=== PATIENT | female | born 1945 | race Caucasian/White ===

== ENCOUNTER 2017-09-17 15:13 | Inpatient (IN) | payer MEDICARE ==
[~2017-09-17 15:13] MED LIST: ISOVUE-370 76%-LOCM 1 ML ONE
--- NOTE | 2017-09-17 15:42 | CT ---
CT OF BRAIN PERFORMED WITHOUT CONTRAST ENHANCEMENT: 09/17/16 HISTORY: Altered mental status. Patient found unresponsive. History of previous CVAs. COMPARISON: None. There is a right sided scalp hematoma present. There is a left frontal craniotomy. There is extensive underlying encephalomalacia change mainly in the left middle cerebral artery distribution and decrea sed attenuation involving basically the entire left periventricular white matter. There is dilatation of the left lateral ventricle related to the encephalomalacia change. No definite acute findings. An arachnoid cyst is noted in the right temporal lobe. IMPRESSION: Postoperative changes and extensive encephalomalacia change of the left cerebral hemisphere. No defin ite acute findings. Findings telephoned to the Emergency Room at 1524 hours. POS: [facility]
[2017-09-17] MEDS ORDERED: Vecuronium 10 MG VIAL ONE ×2 (15:51→15:52)
[2017-09-17] MEDS ORDERED: Water For Inject, Bacteriostat 30 ML ONE (15:53)
[2017-09-17] MEDS ORDERED: Propofol 1,000 MG/100 ML VIAL IV ONE (15:58)
[2017-09-17] MEDS ORDERED: Lisinopril 10 MG TAB ONE (15:58)
[2017-09-17 16:01] LABS: Bilirubin Negative (Negative); Blood, Urine Small (Negative); Glucose, Urine (Dipstick) Negative (Negative); Ketone, Urine Negative (Negative); Nitrite Negative (Negative); Protein, Urine (Dipstick) 30 mg/dL (Neg-Trace); Urobilinogen 0.2 mg/dL (0.2-1.0)
[2017-09-17 16:04] LABS: Bacteria/HPF None Seen HPF (None Seen); Hyaline Casts/LPF 0-3 HYALINE CAST LPF (0-3 Hyaline); RBC/HPF 0-3 HPF (0-3); Squamous Epithelial None Seen HPF (0-3); WBC/HPF None Seen HPF (0-3)
[2017-09-17 16:12] LABS: #Lymphocytes 1.3 thou/uL (1.20-3.40); #Monocytes 0.6 thou/uL (0.11-0.59); #Neutrophils 9.2 thou/uL (1.40-6.50); %Basophils 0.3 % (0.0-1.0); %Eosinophils 0.3 % (0.0-10.0); %Lymphocytes 11.5 % (21.0-51.0); %Monocytes 5.7 % (0.0-10.0); Hematocrit 44.6 % (36.0-47.0); Mean Platelet Volume 8.4 fL (7.4-10.4); White Blood Cell (WBC) Count 11.2 thou/uL (4.8-10.8)
[2017-09-17] MEDS ORDERED: Atropine Sulfate 1 mg/10 ml Syringe ONE (16:12)
[2017-09-17 16:21] LABS: Lactic Acid - Sepsis 2.2 mmol/L (0.5-2.2)
[2017-09-17 16:21] LABS: Oxyhemoglobin 97.3 % (94.0-97.0); Sodium 142 mmol/L (135-148)
[2017-09-17 16:22] LABS: Mechanical Tidal Volume 500 ml; Modified Allen's Test POSITIVE; Vent YES
[2017-09-17 16:23] LABS: Mode SIMV; Pressure Support 10 cmH2O
[2017-09-17 16:29] LABS: Troponin I 0.021 ng/mL (< 0.028)
[2017-09-17 16:32] LABS: ALT (SGPT) 11 U/L (8-55); AST (SGOT) 27 U/L (5-34); Alkaline Phosphatase 120 U/L (40-150); Anion Gap 18 mmol/L (10-20); BUN (Urea Nitrogen) 8 mg/dL (9.8-20.1); Bilirubin, Total 0.5 mg/dL (0.2-1.2); CK (CPK) 446 U/L (29-168); Calc. Creatinine Clearance 0 mL/min (70-130); Calcium 9.2 mg/dL (7.8-10.44); Carbon Dioxide 22 mmol/L (23-31); Chloride 104 mmol/L (98-107); Estimated GFR-MDRD 71; Lipase 9 U/L (8-78); Protein, Total 8.2 g/dL (6.0-8.3)
[2017-09-17 16:41] LABS: Amphetamine Not Detected (NotDetected); Methadone Not Detected (NotDetected); Methamphetamine Not Detected (NotDetected)
[2017-09-17 16:42] LABS: Prothrombin Time 14.4 SEC (12.0-14.7)
--- NOTE | 2017-09-17 17:02 | RAD ---
CHEST ONE VIEW 09/17/17 HISTORY: Altered mental status. COMPARISON: None. FINDINGS: The patient is intubated with endotracheal tube tip 2.5 cm craniad to the michaela. Enteric tube is in place with tip below the diaphragm although out of field of view. Heart size is prominent. No pneumothorax or effusion. IMPRESSION: 1. Endotracheal tube tip 2.5 cm craniad to the michaela. 2. Enteric tube tip below diaphragm although out of field of view. 3. Mild cardiomegaly. POS: [facility]
--- NOTE | 2017-09-17 17:10 | RAD ---
ABDOMEN ONE VIEW 09/17/17 HISTORY: Tube placement. COMPARISON: None. FINDINGS: Enteric tube is in place with tip at the gastric body and the side port appears to be at the GE junct ion. IMPRESSION: Enteric tube tip at the gastric body. Side port appears to be at the GE junction. Recommend advancing 2 to 3 cm. POS: [facility]
[2017-09-17] MEDS ORDERED: Piperacillin/Tazobactam 3.375 GM in Sodium Chloride 0.9% 100 ML IVPB SCH (17:30)
[2017-09-17 17:35] LABS: Acetaminophen Less than 6.0 mcg/mL (10.0-30.0); Salicylate Less than 8.0 mg/dL (15.0-30.0)
--- NOTE | 2017-09-17 18:33 | CT ---
CT ANGIO OF HEAD WITH AND WITHOUT CONTRAST WITH PERFUSION 09/17/17 HISTORY: Altered mental status. COMPARISON: CT brain same day. TECHNIQUE: CT angiogram of the head performed after the intravenous administration of contrast. 3D rendering is provided. Perfusion was performed. FINDINGS: On the CTA images, there is a clot completely occluding the distal right M1 branch with extension to the superior and inferior M2 branches for a short segmental length with distal reconstitution. This a bnormal increased mean transit time throughout the right MCA territory with mildly decreased cerebral blood flow although the cerebral blood volume is maintained indicating a large volume of potentially viable brain. Dense atherosclerotic plaque throughout the transverse aorta. Evidence of prior surgery on the right neck. Left MCA encephalomalacia is present. The orbits are unremarkable. Patient is intubated and enteric tube has also been placed. There is some atelectatic changes in the lung apices. Small volume gas in the right internal jugular vein. Anterior cerebral arteries are patent. High grade stenosis left P1. Right [employer] is patent. Left m iddle cerebral artery is patent. IMPRESSION: Acute thrombus of the distal right M1 branch with a large penumbra of viable salvageable brain. Code CR - Nurse notified of findings via telephone at 6:[address] Disla was notified via the nurse. POS: [facility]
[2017-09-17] MEDS ORDERED: hydrALAZINE 20 MG/ML VIAL SLOW IVP PRN (18:43)
[2017-09-17] MEDS ORDERED: Ondansetron ODT 4 MG TAB PO PRN (18:43)
[2017-09-17] MEDS ORDERED: Ondansetron HCl/PF 4 MG/2 ML Vial IVP PRN (18:43)
[2017-09-17] MEDS ORDERED: Labetalol HCl 100 MG/20 ML VIAL SLOW IVP PRN (18:43)
[2017-09-17] MEDS ORDERED: Acetaminophen 650 MG Suppository PR PRN (18:43)
--- NOTE | 2017-09-17 18:56 | ER ---
DATE OF SERVICE: 09/17/2017 Please refer the patient's electronic medical record for further details of her visit. In summary, the patient presents with altered mental status. There was no concern for CVA and a stro ke activation was initiated. She was transferred directly from the ambulance to CT scan, which showe d no acute intracranial hemorrhage or other acute findings. Because of her time of onset of symptoms which was at least prior to 8 a.m., the patient was outside the window for thrombolytics or Sharyn tr eatment. On initial survey, the patient is breathing spontaneously, but not protecting her airway. Breath sounds are sonorous. I discussed with the patient's family regarding her wishes, they indica te that "whatever needs to be done." They are in agreement with my plan for intubation. Patient was intubated without any episodes of hypoxia or any other complication. She was hypertensive on arriva l, this improved with propofol administration to maintain sedation after intubation. She became mild ly bradycardic in the mid 40s shortly after intubation, but this spontaneously resolved to her baseli ne in the mid 50s. At this point, there is no clear etiology of her altered mentation. Her evaluati on in the ER reveals normal renal function and electrolytes, no acute cardiac ischemia, a mildly elev ated Dilantin level (which she takes for history of seizures, though she has not had one for the last 12 years). There is no clear underlying infectious focus with a normal chest x-ray and urinalysis. Cultures are pending at this point. The patient will be covered with antibiotics as a precaution. Her lactate i s noted to be at the high side of normal. Her family was updated with findings and plan, they are aw are of the life threatening nature of her condition. She is in stable condition at the time of admis kalin to the ICU, though with a very guarded prognosis given her underlying comorbid conditions and th e severity of her altered mentation.
[2017-09-17] MEDS ORDERED: Enoxaparin Sodium 40 MG/0.4 ML SYRINGE SC SCH (19:00)
[2017-09-17 19:08] LABS: Hemoglobin A1c 5.1 % (4.0-6.0)
[2017-09-17 19:19] LABS: Troponin I 0.044 ng/mL (< 0.028)
[2017-09-17] MEDS: D5 1/2 NS w/20 mEq KCL 1,000 ML IV SCH (19:49)
[2017-09-17] MEDS: Famotidine/PF 20 mg/2ml Vial SLOW IVP SCH (19:58)
--- NOTE | 2017-09-17 20:27 | HP ---
This is an attending history and physical for patient, Gypsy Bourgeois. For full history and physic al, please see Dr. Upton's dictated H&P. Portion to the history and physical have been reproduced b y myself and I am in agreement with his stated plan. HISTORY OF PRESENT ILLNESS: The patient is a 72-year-old female with a history of left-sided CVA wit h resultant of right-sided deficits in approximately 2002 as well a seizure disorder from the severe CVA, who presents to the ER tonight after being found with altered mental status by family members. The patient was apparently in her normal state of health last night at bedtime. However, this mornin g, the granddaughter found the patient to be somnolent at approximately 8:00 a.m. that progressed to minimally responsive at approximately 9:00 a.m. At that time, EMS was called and patient was transpo rted to the hospital. Upon arrival to the hospital, the patient had severe obtundation and had been found to be unable to protect her airway due to altered mentation. The decision was made at that loy e to intubate her and admit her to the ICU. Upon questioning family, they report that the patient wa s in normal state of health last night. They report that her baseline neurological function includes being able to ambulate with minimal difficulty and carry on conversations. However, as mentioned ab way this morning, she was less verbally responsive that seemed to progress throughout the morning. F amily members denied that the patient complained of any other symptoms including headache, sensory ch main, motor weakness. They also denied any other symptoms of illness and reported she had been quite well recently. Upon arrival to the ER, she was intubated. Routine labs were obtained. She was adm itted to the Critical Care Unit for further workup and intervention. PHYSICAL EXAMINATION: At the time of my exam include; VITAL SIGNS: Temperature afebrile, pulse 55, blood pressure 193/61, respirations were 16 a minute an d saturations are 98% on SIMV with FiO2 of 50%. GENERAL APPEARANCE: On exam, patient was sedated and ventilated. Therefore, she was nonresponsive d uring my examination. HEENT: Pupils were equally round and sluggishly but reactive to light. There was no evidence of asy mmetric pupils. CARDIOVASCULAR: The patient's heart was bradycardic, but regular rhythm. There were no murmurs ausc ultated. RESPIRATORY: Lungs were clear bilaterally to auscultation. ABDOMEN: Soft and nondistended. There was no guarding on exam. EXTREMITIES: Revealed palpable and symmetric pulses in the upper and lower extremities bilaterally. The patient was noted to have 3+ pitting edema in the right lower extremity as it is chronic per fam patsy. Patient had 2 beats of myoclonus in the left lower extremity. Unable to obtain in the right lo wer extremity due to severe edema in the right foot. NEUROLOGIC: Not possible at this time as the patient was sedated with propofol. However, it was not ed by the nurses that she did have some spontaneous movements. Upon arriving to the Critical Care Un it, which included some left arm movement as well as some yawning type movement with her mouth. LABORATORY DATA: Pertinent laboratory studies include: 1. Overall, normal CBC, mildly elevated white count of 11.2 with 82% neutrophils. 2. CMP was overtly normal. ABG was 7.47, pCO2 of 31.5 and pO2 of 201 and base excess 0. 3. CK was 446, CK-MB 6.9 and troponin 0.021. 4. Lactate was 2.2. 5. Prolactin 9. 6. Urinalysis was overall clear 7. Urine drug screen was positive for barbiturates and had a Dilantin level 24.5, which is consisten t with the patient's home medication. Serum osmolarity was normal. IMAGING AND X-RAY FINDINGS: 1. Imaging studies showed an initial brain CT, which showed a right-sided scalp hematoma. There wer e no acute changes seen. The patient was noted to have extensive left-sided encephalomalacia from he r previous infarct. 2. Chest x-ray showed ET tube in appropriate place with NG tube. There were no acute cardiopulmonar y processes in chest x-ray. 3. CT angiogram of the head and neck showed an acute thrombosis of the distal right M1 branch with l arge number of viable, salvageable brain essentially showing an acute infarct in the right side of th e patient's brain. ASSESSMENT AND PLAN: This is a 72-year-old female with a; 1. History of cerebrovascular accident who was admitted to the ICU with encephalopathy, now secondar patsy to an acute right-sided middle cerebral artery cerebrovascular accident. As patient had severe o btundation likely secondary to this acute infarct, she has been intubated and ventilated and will be admitted to the ICU. Pulmonology has been consulted and we will await further recommendations from t hem as well as vent management. ABG at the time of intubation appears appropriate and there is not b e any hypoxia or hypercapnia. I do not have suspicious if there is severe lung process going on and contributing this patient's hospitalization. She has now been found to have an acute infarct. Inter ventional Stroke team has been consulted and we are awaiting further recommendations from them. Neur ology as well as Stroke team will be consulted on this patient tonight. We will continue with typica l post-stroke protocol including aspirin, statin, risk stratification, therapy consultations and Stro ke team as mentioned above. The patient with significant hypertension at sometimes into the 200 syst olic. Due to this acute infarct with salvageable brain tissue, we will continue the patient on permi ssive hypertension for the next 24 hours and allow pressures 220/110. If increased above the level, we will provide p.r.n. medications to bring it down mildly. As far as other causes related to the en cephalopathy, they resulted in hospitalization. There has been no evidence of trauma, toxins, electr olyte or endocrine abnormalities, seizure or infection that would have resulted in some of the patien t's symptoms. She has been given one dose of antibiotics in the emergency room and blood and urine c ultures have been obtained. We will await those results. However, I do not feel that this is a sign ificant cause of her current symptoms. Due to her large infarct as well as the history of infarct on the left side of her brain, we will need to monitor her for seizure activity. She will be continued on her home Keppra, but she may will need additional medication if she starts having any sort of sei zure activity. We will await further recommendations from Neurology. 2. Accelerated hypertension. This is now likely due to the patient's acute infarct. As above, we w ill allow permissive hypertension for 24 hours. PRNs will be available for pressures elevated higher than at goal. 3. Elevated CK. We will trend these enzymes. This is likely due to demand ischemia due to sympathe tic response to the patient's acute cerebrovascular accident. We will keep an eye on this; it is unl ikely that the patient is actually having an acute infarct. If it does appear that, she may need wor kup for embolic cause. Consider echo if that occurs.
[2017-09-17] MEDS ORDERED: Sedation Protocol FS SCH (20:50)
[2017-09-17] MEDS ORDERED: Propofol 1,000 MG/100 ML VIAL IV PRN (20:55)
[2017-09-17] MEDS ORDERED: Lorazepam 2 MG/ML VIAL SLOW IVP PRN (20:55)
[2017-09-17] MEDS ORDERED: DISCONTINUE PREVIOUS NARCOTIC PAIN MEDICATIONS AND BENZODIAZEPINES FS SCH (20:55)
[2017-09-17] MEDS ORDERED: Fentanyl 20 MCG/ML 250 ML IVPB SCH (20:55)
[2017-09-17] MEDS: Fosphenytoin Sodium 100 MG in Sodium Chloride 0.9% 50 ML IVPB SCH (20:58)
[2017-09-17] MEDS ORDERED: Atropine Sulfate 1 mg/1 ml Vial IVP SCH (21:00)
[2017-09-17] MEDS: Atorvastatin Calcium 40 MG TAB PO SCH (21:02)
[2017-09-17 22:22] LABS: Troponin I 0.054 ng/mL (< 0.028)
--- NOTE | 2017-09-17 23:34 | PRG ---
DATE OF SERVICE: 09/17/2017 This note was based upon a phone call interaction by [facility]. SUBJECTIVE: Ms. Bourgeois is a 72-year-old female with a history significant for aneurysm repair, seizure disorder and large left hemispheric stroke. Per report from the resident as well as review of the ER records, the patient was at her baseline state of health last evening. Per report this morning when the patient awoke, the patient was less interactive and less responsive and became less arousable and unresponsive towards the latter part of the morning and early afternoon. She presented to the ER and due to her altered mental status, she was rapid sequence intubated. She was placed in the ICU. She initially underwent a CT scan of the head, which showed no acute events but evidence for prior operative procedures as well as encephalomalacia and prior chronic infarcts predominantly on the left. She also has a right-sided arachnoid cyst in the anterior right temporal lobe. She subsequently underwent CT angiography, which showed the presence of what is likely thrombus within the right M1 branch which extends into the superior aspect of the M2 branch. Distally, the vessels reconstitute which likely accounts for her penumbra due to collateral flow. Given the time course (~20 hours) that the patient was last seen normal, her poor condition, the lack of new lateralizing findings, and unexplained altered mental status/encephalopathy, I do not believe she is a good candidate for any additional interventional stroke treatment. Despite thrombus, she perfuses the right hemisphere and therefore we should avoid over-aggressive BP control. JUAN ALBERTO
[2017-09-18] MEDS: D5 1/2 NS w/20 mEq KCL 1,000 ML IV SCH (04:53)
[2017-09-18] MEDS: Fosphenytoin Sodium 100 MG in Sodium Chloride 0.9% 50 ML IVPB SCH ×3 (05:01→21:08)
[2017-09-18 05:06] LABS: Anion Gap 14 mmol/L (10-20); BUN (Urea Nitrogen) 8 mg/dL (9.8-20.1); Calc. Creatinine Clearance 102 mL/min (70-130); Calcium 8.2 mg/dL (7.8-10.44); Carbon Dioxide 19 mmol/L (23-31); Chloride 104 mmol/L (98-107); Cholesterol 202 mg/dl (< 200 Desired); Estimated GFR-MDRD 78; LDL Cholesterol, Calculated 123 mg/dL
[2017-09-18 06:18] LABS: Oxyhemoglobin 95.2 % (94.0-97.0); Sodium 138 mmol/L (135-148)
[2017-09-18 06:19] LABS: Mechanical Tidal Volume 500 ml; Mode SIMV/PS; Pressure Support 10 cmH2O; Vent YES
--- NOTE | 2017-09-18 06:25 | CON ---
DATE OF CONSULTATION: 09/17/2017 REFERRING PROVIDER: Frank Upton M.D. REASON FOR CONSULTATION: Stroke. HISTORY OF PRESENT ILLNESS: Ms. Bourgeois is a 72-year-old female who has been consulted f or evaluation of stroke. History is obtained from patient's who was present at bedside. Celestina rocha reports that the patient has a history of aneurysm rupture, along with a stroke in 2002. She hernandez d undergone craniotomy at that time and since then has had expressive aphasia along with right-sided weakness. 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 From that stroke, she had developed seizu res secondary to that. At that time, she has been on seizure medication and has been well controlled on her seizures. She has been in her normal baseline since that time to yesterday night. He states that his granddaughter was with her. Yesterday around 10:30 p.m., he had talked to her over the beryl ne and she was doing okay at that time. This morning, her granddaughter tried to wake her up and she was not waking up. Due to this reason, they had decided to bring her to the emergency room for furt her evaluation. On arrival here, she had to be intubated to protect her airways. I am being asked t o further evaluate this patient for stroke. PAST MEDICAL HISTORY: Significant for hypertension, stroke, aneurysm rupture, history of seizure, hy perlipidemia. PAST SURGICAL HISTORY: Significant for craniotomy. SOCIAL HISTORY: She does not smoke cigarettes, drink alcohol or use illicit drugs. She is a nd lives with her . CURRENT MEDICATIONS: Please review MAR. ALLERGIES: No known drug allergies. REVIEW OF SYSTEMS: Unable to obtain. PHYSICAL EXAMINATION: VITAL SIGNS: Blood pressure of 163/69, pulse of 52, respirations of 18, O2 sats of 100% on mechanica l ventilation, temperature of 98.3. GENERAL: Intubated, sedated female, in no apparent distress. RESPIRATORY: Clear to auscultation bilaterally. CARDIOVASCULAR: Regular rate and rhythm. NEUROLOGIC: Mental status: The patient is intubated and sedated with propofol. She is nonresponsiv e to verbal or noxious stimuli. Cranial nerves: Pupils are 3 mm and reactive. She responds to supr aorbital pressure bilaterally. Corneal reflexes are present bilaterally. She does breathe over the ventilator machine. Motor exam showed spastic right upper and right lower extremity that has been th ere from her stroke in 2002. She has a flaccid left upper and left lower extremity. She does withdr aw to pain on the left upper and left lower extremity as well as in right upper and right lower extre mity. LABORATORY DATA: Reviewed, which included CBC, coag panel, CMP, CK-MB, troponin, TSH, lactic acid, u rinalysis, urine drug screen, Dilantin level, which is significant for WBC of 11.2. CPK of 446, CK-M B of 7.8, troponin of 0.044, Dilantin level of 24.5, otherwise unremarkable. IMAGING STUDIES: CT head without contrast was reviewed which showed encephalomalacia involving the l eft MCA distribution suggestive of remote infarct. The CT angiogram of the head and neck was reviewe d, which showed right MCA M1 distribution distal embolus. CT perfusion scan showed large area of pen umbra on the right MCA territory. IMPRESSION: 1. Right middle cerebral artery stroke. 2. Decreased level of arousal, due to #1. 3. Seizure disorder. ASSESSMENT AND PLAN: Ms. Bourgeois is a 72-year-old female with a history of left MCA stro ke and hemorrhage secondary to aneurysm rupture, presented with the acute onset of decreased level of arousal. Her last time well known was more than 4-1/2 hours. She also has a history of craniotomy done and large left MCA stroke, thus she is not a candidate for IV TPA. The patient's case was discu ssed with Dr. Pastrana by global president physician who had informed me that Dr. Pastrana felt the patient is not a candidate for intra-endovascular therapy per Dr. Pastrana. At this time, I will recom mend continuing supportive care. We will obtain MRI brain without contrast in the morning. I have d iscussed with the patient's and explained that the prognosis is guarded at this point. I deim l have to evaluate her MRI findings and repeat the exam on tomorrow to see how she is doing. I will further discuss the prognosis on tomorrow with the family. Thank you for your consultation.
[2017-09-18 06:30] LABS: Troponin I 0.028 ng/mL (< 0.028)
[2017-09-18 06:30] LABS: Band 1 % (5-11); Hematocrit 43.5 % (36.0-47.0); Mean Platelet Volume 9.5 fL (7.4-10.4); Neutrophil 74 % (42-75); Reactive Lymphocytes 1 % (0-10); Red Blood Cell (RBC) Count 4.63 mill/uL (4.20-5.40); White Blood Cell (WBC) Count 7.5 thou/uL (4.8-10.8)
[2017-09-18 06:31] LABS: Critical Call CKMBM RESULT DECREASING
--- NOTE | 2017-09-18 06:54 | CON ---
DATE OF CONSULTATION: 09/17/2017 HISTORY OF PRESENT ILLNESS: Gypsy Bourgeois is a 72-year-old female who in 2002 had a craniotomy fo r a left-sided hemorrhage. Ever since then, she has right-sided paralysis, though she has survived t he insult. She now sees Dr. Levine in [place]. According to her granddaughter, who lives with her, she was found to be less responsive today, unclear what transpired. She fell about a month ago, but she has been e ating and drinking. In the ER, she had a CT of her brain, which shows the previously described postoperative changes in t he left hemisphere, but nothing new was seen. X-ray was unremarkable. She was intubated for mental status change. PAST MEDICAL HISTORY: Craniotomy for intracerebral hemorrhage. MEDICATIONS: Only medicines she takes are Dilantin and aspirin. ALLERGIES: None. SOCIAL AND FAMILY HISTORY: Otherwise unremarkable. Former smoker. REVIEW OF SYSTEMS: Otherwise negative. PHYSICAL EXAMINATION: GENERAL: She is unresponsive, on Diprivan. VITAL SIGNS: Pulse 61, blood pressure 119/80, sats are 97%, respirations 18. CHEST: Revealed decreased breath sounds, no wheezing. CARDIAC: Normal S1 and S2. No gallops. ABDOMEN: No masses. LABORATORY DATA: Shows white count 11,000, H&H are 14 and 44, platelet count is normal. PO2 of 201, pCO2 of 31, pH 7.47, 50%, 16 rate. Electrolytes are normal. Sodium 139, CK of 6.9, creatinine 0.8. Dilantin level is 24.5. IMPRESSION: 1. History of previous craniotomy for hemorrhage. 2. Right-sided paralysis. 3. Seizure disorders. 4. Acute mental status change. PLAN: Minimize sedation. Continue home seizure medication, serial exam. Lab is being ordered. Input from Neurology. We will follow. Wean when stable. Forty minutes of critical care time.
--- NOTE | 2017-09-18 07:35 | PDOC.FM ---
- Subjective Subjective: Overnight, patient with kristen and given a dose of atropine. HR has been persistently in 40s-50s. Patient remains sedated and able to withdraw from pain. - Objective Vital Signs & Weight: Vital Signs (12 hours) Temp Pulse Resp BP Pulse Ox 09/18/17 06:50 45 L 132/46 L 09/18/17 06:00 22 H 09/18/17 04:00 98.7 F 16 09/18/17 03:00 49 L 146/45 H 09/18/17 02:00 18 09/18/17 00:00 98.6 F 20 09/17/17 22:09 100 09/17/17 22:07 47 L 09/17/17 22:00 23 H 09/17/17 20:00 98.3 F 47 L 15 100 Most Recent Monitor Data Heart Rate from ECG 59 NIBP 132/46 NIBP BP-Mean 74 Respiration from ECG 16 SpO2 96 I&O: 09/17/17 09/18/17 09/19/17 06:59 06:59 06:59 Intake Total 1260.9 Output Total 730 Balance 530.9 Result Diagrams: 09/18/17 03:26 09/18/17 03:26 <Sariah Remy - Last Filed: 09/18/17 10:37> - Objective Vital Signs & Weight: Vital Signs (12 hours) Temp Pulse Pulse Pulse Resp BP BP 09/18/17 10:34 59 L 160/50 H 09/18/17 10:26 52 L 56 L 157/41 H 09/18/17 10:00 10 L 09/18/17 08:50 47 L 09/18/17 08:05 99.3 F 09/18/17 08:00 99.3 F 47 L 16 09/18/17 06:50 45 L 132/46 L 09/18/17 06:00 22 H 09/18/17 04:00 98.7 F 16 09/18/17 03:00 49 L 146/45 H 09/18/17 02:00 18 09/18/17 00:00 98.6 F 20 BP Pulse Ox 09/18/17 10:34 09/18/17 10:26 160/50 H 09/18/17 10:00 09/18/17 08:50 09/18/17 08:05 09/18/17 08:00 98 09/18/17 06:50 09/18/17 06:00 09/18/17 04:00 09/18/17 03:00 09/18/17 02:00 09/18/17 00:00 Most Recent Monitor Data Heart Rate from ECG 54 NIBP 157/41 NIBP BP-Mean 77 Respiration from ECG 16 SpO2 100 I&O: 09/17/17 09/18/17 09/19/17 06:59 06:59 06:59 Intake Total 1260.9 513 Output Total 730 60 Balance 530.9 453 Result Diagrams: 09/18/17 03:26 09/18/17 03:26 <Afshin Mejia - Last Filed: 09/18/17 10:59> Phys Exam - Physical Examination Constitutional: NAD ETT in place HEENT: PERRLA (RT pupil sluggish but reactive) Respiratory: no wheezing, clear to auscultation bilateral Cardiovascular: no significant murmur bradycardic Gastrointestinal: soft, non-tender, positive bowel sounds Musculoskeletal: edema present (RLE 3+, LLE 2+) not able to do perform due to sedation <Sariah Remy - Last Filed: 09/18/17 10:37> Dx/Plan (1) Acute right MCA stroke Code(s): I63.511 - CEREB INFRC D/T UNSP OCCLS OR STENOS OF RIGHT MID CEREB ART Status: Acute Plan: Patient with hx of LT sided infarct with residual RT sided deficits as well as hx of craniotomy for hemorrhage. Presented in AMS and found to have RT MCA on CTA. Neurosurgery consulted and do not recommend any intervention. Dr. Son of Neurology consulted and will obtain MRI. Pending MRI results will discuss further prognosis. Currently patient is intubated and full code. Permissive HTN allowed for 24hours, however patient acutely dropped her BPs from 200s to 120s. Echo pending. Cont ASA and statin. (2) Acute respiratory failure Code(s): J96.00 - ACUTE RESPIRATORY FAILURE, UNSP W HYPOXIA OR HYPERCAPNIA Status: Acute Plan: 2/2 to acute RT CVA. Dr. Frost of Pulmonology consulted. Appreciate recs. (3) Bradycardia Code(s): R00.1 - BRADYCARDIA, UNSPECIFIED Status: Acute Plan: Patient with persistent HR in 40-50s. Given atropine x2 overnight. Unknown if patient chronically bradycardic. Provide theophylline prn HR <45. Monitor. (4) History of CVA with residual deficit Code(s): I69.30 - UNSPECIFIED SEQUELAE OF CEREBRAL INFARCTION Status: Chronic Plan: Hx of LT infarct causing RT sided deficits in 2002 as well as hx of craniotomy from hemorrhage. (5) Seizure disorder as sequela of cerebrovascular accident Code(s): I69.398 - OTHER SEQUELAE OF CEREBRAL INFARCTION; G40.909 - EPILEPSY, UNSP, NOT INTRACTABLE, WITHOUT STATUS EPILEPTICUS Status: Chronic Plan: Cont home phenytoin. No seizure activity during hospitalization but will monitor as patient now with new RT MCA. (6) Hx of craniotomy Code(s): Z98.890 - OTHER SPECIFIED POSTPROCEDURAL STATES Status: Acute <Sariah Remy - Last Filed: 09/18/17 10:37> Attending Addendum - Attending Addendum I personally evaluated the patient and discussed the management with Dr. Remy. I agree with the History, Examination, Assessment and Plan documented above with any addition or exceptions noted below. Patient admitted for R sided MCA infarct after being notably obtunded yesterday at home. She has been stable overnight, though she is in critical condition. Continues on ventilator and is not requiring sedation. She has been allowed permissive HTN, but her blood pressures have come back to normal, which may worsen her infarct as there was noted to be salvagable tissue on CTA. Awaiting MRI today to see how significant the infarct is, and awaiting further neurology recs. This is likely a catastrophic infarct as she has a large amount of encephalomalacia on the L side from previous infarct. She has been persistently bradycardic since admission, and has received Atropine x 2. I am unsure of the etiology of this, though it is possible that patient has underlying and chronic bradyarrhythmia. Await further recs from Pulm and Neurology. Her urine output has also trended down, though kidney values normal. Will bolus with fluids as this may be due to insufficient fluid intake. <Afshin Mejia - Last Filed: 09/18/17 10:59>
--- NOTE | 2017-09-18 07:41 | HP-2 ---
DATE OF ADMISSION: 09/17/2017 LOCATION OF ADMISSION: [facility]. ATTENDING: Afshin Mejia MD RESIDENT: Frank Upton, PGY1 CODE STATUS: FULL CODE. HISTORIAN: The patient's granddaughter and the patient's . CHIEF COMPLAINT: Decreased alertness, altered mental status. HISTORY OF PRESENT ILLNESS: It has been noted that HPI was obtained from granddaughter and a s the patient was intubated and sedated at this time. This is a 72-year-old female who com es in with altered mental status starting when she woke up at 8:00 this morning. Last night, she luz maria t to bed around 10:30 with her . Her said she had no complaints and was talking and a lert, denies any complaints. There were no problems. Says that her baseline status was she was able to walk. She does have some right lower leg lymphedema which causes her that she has to use a walke r, but on the night, she talked normally, has no real problems at home, so left to go to [facility], grandson and granddaughter was at the house, went to go wake up the patient for breakfast. When she said she woke her up that she kind of mumbled, her speech was not quite with it, and that she fe ll back asleep. Granddaughter did not think of anything of it just that the patient was tired, let h er sleep, went back and in an hour kind of tried to wake her up again, the patient was kind of mumble d, not really with it, her speech was mumbled. At this time, she went to go get a neighbor to come h elp her. At this time, her grandma's legs were kind of hanging off the side of the bed, was not quit e sure what happened at this time, the neighbor thought and the granddaughter thought maybe they shou ld call the ambulance and around 10:00, they finally called the ambulance. When she came to the ER, she was not maintaining her airway very well, not oxygenating well. She was bradycardic, really hype rtensive, so at this time, they sedated and intubated her. We also gave her some atropine in the ER. PAST MEDICAL HISTORY: She had an aneurysm/stroke back in 2002 when she got a craniotomy for. She hernandez d a history of seizures likely from the stroke up until 2004, has not had a seizure since. PAST SURGICAL HISTORY: She had a craniotomy back in 2002. She had Mohs surgery to remove a mole on her head 4 years ago. She had CEA on the right side of her neck. ALLERGIES: No known drug allergies. MEDICATIONS: We will need to med rec her, but says she takes a seizure pill, takes a baby as pirin, and takes a fluid pill for the lymphedema on her right leg. FAMILY HISTORY: Insignificant. SOCIAL HISTORY: She quit smoking in 2002 but smoked for 30 years, a pack per day. Alcohol use, none . Drugs, none. REVIEW OF SYSTEMS: Unable to obtain review of systems as the patient is sedated and intubated. PHYSICAL EXAMINATION: VITAL SIGNS: Blood pressure is 231/66, pulse 81, respirations 20, temperature was 97.9, pulse ox 98% on ventilator. Current weight was 81 kilograms. GENERAL: The patient is not alert, not oriented. She does seem well-developed, is obese, not approp riately interactive. EYES: Pupils are pinpoint; they did not seem at this time, not reactive to light. Conjunctiva e are within normal limits. Nasal mucosa and oropharynx are within normal limits. NECK: Supple. No lymphadenopathy, no thyromegaly, no bruits. There is a CEA scar on the right side of her neck. CARDIOVASCULAR: Regular rhythm. Rate is bradycardic, is slow. No murmurs, no gallops. Radial puls es and pedal pulses were not able to palpate, were very weak. RESPIRATORY: Did not hear any lung abnormality, was on the ventilator at this time. SKIN: Very cool to touch. No rashes noted. Skin was kind of pale as well. ABDOMEN: It was hard. It was nontender to palpation, she did not react to pain. Bowel sounds were heard in all 4 quadrants. It was a little bit distended. EXTREMITIES: She does have +2 pitting edema on her right lower leg, has lymphedema. MUSCULOSKELETAL: She was moving her left leg. She did react when I touched her left lower extremity . She did kind of withdraw from me touching it. She did not withdraw from me pinching her upper ext remities and she did not withdraw on her right side. Her right arm and right leg were kind of in the extended position, extended posture. Also, her left leg at times when she was not moving was in the extended posture, not her left arm at that time, unable to determine focal deficits due to the sedat ion, unable to do [place] Coma Scale. LABORATORY DATA: White blood cell count 11.2, hemoglobin was 14.2, hematocrit was 44.6, MCV was 94.9 , platelets were 233. Sodium was 139, potassium was 5.0, chloride was 104, CO2 was 22, BUN was 8, cr eatinine was 0.8, glucose was 117, calcium was 9.2, total protein was 8.2, albumin was 4.2, alkaline phosphatase was 120, AST was 27, ALT was 11, total bilirubin was 0.5. PT was 14.4, INR was 1.1, aPTT was 31.0, pH was 7.47, pCO2 was 31.5, pO2 was 201. CK was 446, CK-MB was 6.9, troponins were 0.021. Lipase was 9. Prolactin was 9.92. Lactic acid was 2.2. UA was negative at this time, no abnormal ities seen. IMAGING: A chest x-ray showed an endotracheal tube in place, showed enteric tube tip below the diaph ragm and showed mild cardiomegaly. CT head showed postop changes and extensive encephalomalacia, jose luis nge of the left cerebral hemisphere. No acute findings. Abdominal x-rays showed enteric tube tip at the gastric body, side port at the GE junction and recommend advancing 2-3 cm. ASSESSMENT AND PLAN: 1. Altered mental status likely secondary to stroke. She is sedated and intubated at this time. Emiliano martínez does have a history of aneurysm, stroke in 2002 with right-sided deficits. CT head was negative fo r any acute changes. We will get a CTA of the head and neck. We will get an MRI tomorrow. We will start her on an aspirin and statin. Get a fasting lipid panel, check a TSH, check hemoglobin A1c. Sandra martínez will consult Neurology. We will consult Pulmonology, Critical Care. She will be going to the ICU. Blood cultures and urine cultures are drawn for altered mental status, is not looking like an infec tion at this time, was started on Levaquin and Zosyn. We will continue these antibiotics for now. W e continue to trend CBC, continue to trend BMP. 2. History of seizures. We will continue her home seizure medications, after med record urine drug screen did show possible phenytoin, so we will continue phenytoin at this time for seizure prophylaxi s. 3. Lymphedema of the right leg. Continue home meds water pills. 4. Hypertension. Blood pressure is elevated, but we will allow for permissive hypertension. At thi s time, we will put on labetalol and hydralazine as needed for pressures to get above 220. 5. Elevated CK-MB. CK-MB was elevated at this time and troponin was indeterminate 0.021. We will t rend cardiac enzymes at this time. 5. Deep venous thrombosis prophylaxis, we will use Lovenox and gastroesophageal reflux disease proph ylaxis, we will use famotidine.
[2017-09-18] MEDS: Aspirin 300 MG Suppository PR SCH (08:01)
[2017-09-18] MEDS: Famotidine/PF 20 mg/2ml Vial SLOW IVP SCH ×2 (08:01→21:08)
[2017-09-18] MEDS ORDERED: SODIUM CHLORIDE 0.9% IVPB PRN (08:15)
[2017-09-18] MEDS ORDERED: AMINOPHYLLINE IVPB PRN (08:15)
[2017-09-18] MEDS ORDERED: Aspirin 325 mg Enteric Coated Tablet PO SCH (09:00)
[2017-09-18] MEDS: Sodium Chloride 0.9% 1,000 ML IV SCH ×2 (09:02→21:12)
--- NOTE | 2017-09-18 09:21 | RAD ---
AP CHEST: Date: 09/18/17 HISTORY: Respiratory distress. COMPARISON: 09/17/17 study. FINDINGS: Endotracheal and NG tubes remain in satisfactory position. Heart size appears borderline to slightly enlarged. The lungs appear clear of any infiltrative process. IMPRESSION: Stable chest. POS: [facility]
--- NOTE | 2017-09-18 13:03 | PRG ---
DATE OF SERVICE: 09/18/2017 SUBJECTIVE: Ms. Gypsy Bourgeois is an unfortunate 72-year-old female who was intubated on the vent. She sustained a new right MCA stroke. She has previously undergone a craniotomy for left-sided hemorrhage. This morning, she is in low dose sedation. OBJECTIVE: VITAL SIGNS: She was bradycardic at 46 pulse, sat 100%, blood pressure 140/45, respirations 18. NEUROLOGIC: Pupils are equal. CHEST: Reveals decreased breath sounds without any wheezing, but there is rhonchi. CARDIAC: Normal S1, S2, no gallops. ABDOMEN: Soft. LABORATORY DATA: White count 7.5, hemoglobin and hematocrit are 13 and 35, platelet count 155. PO2 is 83, pCO2 32, pH 7.45. Sodium 133. IMPRESSION: 1. Status post cerebrovascular accident. 2. Former smoker. 3. Chronic obstructive pulmonary disease. 4. Previous craniotomy. PLAN: Await input from Neurology. MRI. Continue vent support. We will discuss with family as they arrive. Start nutrition in the next 24-48 hours. PT. We will follow. One-half hour critical care time.
--- NOTE | 2017-09-18 13:06 | MRI ---
MRI BRAIN PERFORMED WITHOUT CONTRAST ENHANCEMENT: Date: 09/18/17 HISTORY: Stroke symptoms, left-sided weakness. COMPARISON: CT brain and CT angio head done yesterday. FINDINGS: There is moderate atrophy present. Once again, an old infarct in the left middle cerebral artery dist ribution is seen with associated encephalomalacia change and compensatory dilatation of the left late ral ventricle. There is a large area of restricted diffusion within the right middle cerebral artery territory. This involves the temporal lobe and posterior temporal parietooccipital region with the area of infarct e xtending into the right periventricular white matter. In addition, there is some blooming-type change on the gradient echo sequence in a right parasylvian location. Patient does have some encephalomalacia in this area and this could be related to chronic h emosiderin deposition, but could potentially represent a small area of hemorrhage. It measures approx imately 1.0 x 2.0 cm in size. No additional findings. IMPRESSION: 1. Large infarct involving the right middle cerebral artery distribution. 2. Encephalomalacia change of the left middle cerebral artery as discussed above. 3. Area with blood products seen in a right parasylvian location. I am not certain whether this is n ew blood or related to chronic hemosiderin deposition in this area. I would recommend follow-up with CT. A phone call has been made to Dr. Upton. CODE CR. POS: [facility]
--- NOTE | 2017-09-18 17:46 | PRG ---
DATE OF SERVICE: 09/18/2017 SUBJECTIVE: Ms. Bourgeois is a 72-year-old female with a history of left middle cerebral a rtery stroke in 2002, presented with an acute onset of decreased level of arousal. She was found to have a right M1 embolus or thrombus. According to the nurse, there has not been any significant matrin ge in her neurological exam over the past 24 hours. She is spontaneously moving her left leg now whi ch she was not performing on yesterday. There is no movement noted in the left upper extremity. She does not follow any commands. There has not been any fever noted. PHYSICAL EXAMINATION: VITAL SIGNS: Blood pressure of 148/40, pulse of 50, temperature of 99.8, respirations of 17, O2 sats of 99% on mechanical ventilation. GENERAL: Intubated, nonsedated female in no apparent distress. RESPIRATORY: Clear to auscultation bilaterally. CARDIOVASCULAR: Regular rate and rhythm. NEUROLOGICAL: Mental status: The patient is intubated and nonsedated since 8:00 a.m. this morning. She does not respond to any verbal stimuli. Cranial nerves: Pupils are 3 mm and reactive. Corneal reflexes are present bilaterally. She does breathe over the ventilator machine and per nurse, she d oes have positive cough and gag reflex. Motor exam showed spastic right upper extremity and right lo wer extremity. She has normal tone on the left lower extremity and slightly increased tone with a sp astic catch on the left upper extremity. She withdraws to pain on the left upper extremity. She is spontaneously moving her left upper extremity. She does withdraw to pain on the left lower extremity as well. LABORATORY DATA: Reviewed, which included CBC, BMP, lactic acid, lipid profile, CK-MB and troponin, which is significant for sodium of 133, glucose of 126, lactic acid of 2.7, total cholesterol of 202, LDL of 123, HDL of 59, triglycerides of 98, otherwise unremarkable. IMAGING STUDIES: 1. MRI brain without contrast was reviewed, which showed large right MCA distribution ischemic infar ct. 2. History of prior left MCA stroke. ASSESSMENT AND PLAN: Ms. Bourgeois is a pleasant 72-year-old female who presented with the decreased level of arousal. She is found to have large right middle cerebral artery distribution is chemic infarct. I have discussed the findings of the MRI with her over the phone. I have ex plained that the given the size of the stroke, the prognosis is guarded; however, I do believe that g nikhil she has a very spontaneous good movement on the left lower extremity, I would expect some recove ry from the stroke. We will have to continue monitoring her neurological progress over the next few days and once she is extubated, then we will be able to know a little bit more on the deficits that s he exhibits. Continue supportive care. Continue current medical management.
[2017-09-18] MEDS: Atorvastatin Calcium 40 MG TAB PO SCH (21:07)
[2017-09-18] MEDS: Enoxaparin Sodium 40 MG/0.4 ML SYRINGE SC SCH (21:08)
[2017-09-19 04:43] LABS: Anion Gap 12 mmol/L (10-20); BUN (Urea Nitrogen) 10 mg/dL (9.8-20.1); Calc. Creatinine Clearance 98 mL/min (70-130); Calcium 8.2 mg/dL (7.8-10.44); Carbon Dioxide 21 mmol/L (23-31); Chloride 107 mmol/L (98-107); Estimated GFR-MDRD 75
[2017-09-19] MEDS: Fosphenytoin Sodium 100 MG in Sodium Chloride 0.9% 50 ML IVPB SCH ×3 (05:22→21:52)
[2017-09-19 07:09] LABS: Oxyhemoglobin 96.6 % (94.0-97.0); Sodium 137 mmol/L (135-148)
[2017-09-19 07:12] LABS: Mechanical Tidal Volume 500 ml; Mode SIMV.PSV; Modified Allen's Test POSITIVE; Pressure Support 10 cmH2O; Vent YES
--- NOTE | 2017-09-19 07:22 | PDOC.FM ---
- Subjective Subjective: Patient stable overnight. No significant changes per nursing staff. BP has been stable, though continues to not be elevated as was initially desired for permissive HTN for apparent ischemic stroke. Patient has been moving left leg spontaneously. Opens eyes on command, but does not track with light on left. - Objective MAR Reviewed: Yes Vital Signs & Weight: Vital Signs (12 hours) Temp Pulse Resp BP Pulse Ox 09/19/17 06:28 56 L 115/35 L 09/19/17 06:26 58 L 21 H 99 09/19/17 06:00 20 09/19/17 04:00 99.0 F 22 H 09/19/17 03:00 63 136/31 L 09/19/17 02:00 10 L 09/19/17 00:53 40 L 09/19/17 00:52 100 09/19/17 00:00 98.5 F 10 L 09/18/17 22:09 48 L 161/50 H 09/18/17 22:00 10 L 09/18/17 20:00 99.3 F 50 L 22 H 100 Weight Weight 95.1 kg Most Recent Monitor Data Heart Rate from ECG 49 NIBP 115/35 NIBP BP-Mean 57 Respiration from ECG 9 SpO2 100 I&O: 09/18/17 09/19/17 09/20/17 06:59 06:59 06:59 Intake Total 1260.9 1985 Output Total 730 564 Balance 530.9 1421 Result Diagrams: 09/18/17 03:26 09/19/17 03:49 <Paddy Rodas - Last Filed: 09/19/17 07:17> - Objective Vital Signs & Weight: Vital Signs (12 hours) Temp Pulse Resp BP Pulse Ox 09/19/17 10:43 47 L 149/40 H 09/19/17 10:00 16 09/19/17 08:00 99.3 F 18 09/19/17 06:28 56 L 115/35 L 09/19/17 06:26 58 L 21 H 99 09/19/17 06:00 20 09/19/17 04:00 99.0 F 22 H 09/19/17 03:00 63 136/31 L 09/19/17 02:00 10 L 09/19/17 00:53 40 L 09/19/17 00:52 100 09/19/17 00:00 98.5 F 10 L Weight Weight 95.1 kg Most Recent Monitor Data Heart Rate from ECG 57 NIBP 149/40 NIBP BP-Mean 104 Respiration from ECG 12 SpO2 100 I&O: 09/18/17 09/19/17 09/20/17 06:59 06:59 06:59 Intake Total 1260.9 1985 Output Total 730 564 65 Balance 530.9 1421 -65 Result Diagrams: 09/18/17 03:26 09/19/17 03:49 <Alejandra Izquierdo - Last Filed: 09/19/17 11:11> Phys Exam - Physical Examination unconscious, intubated on no sedation both pupils reactive, left eye no movement when opened Respiratory: no wheezing, clear to auscultation bilateral Cardiovascular: RRR, no significant murmur Gastrointestinal: soft R sided hemiparalysis, L sided occasional movments, does not follow command <Paddy Rodas - Last Filed: 09/19/17 07:17> Dx/Plan (1) Acute right MCA stroke Code(s): I63.511 - CEREB INFRC D/T UNSP OCCLS OR STENOS OF RIGHT MID CEREB ART Status: Acute Plan: Stable from yesterday, minimal change. Since yesterday morning, patient has been changed to DNR. Will continue to monitor with and watch for neurologic progress in coordination with Neurology and Pulmonology. Continue to monitor BP for adequate perfusion. CT head repeated today, awaiting read. (2) Bradycardia Code(s): R00.1 - BRADYCARDIA, UNSPECIFIED Status: Acute Plan: Has been low since admission, theophylline was given last night for this and has been improved this morning. (3) Acute respiratory failure Code(s): J96.00 - ACUTE RESPIRATORY FAILURE, UNSP W HYPOXIA OR HYPERCAPNIA Status: Acute Plan: No changes overnight. Continue to monitor and coordinate with Pulmonology. (4) Hx of craniotomy Code(s): Z98.890 - OTHER SPECIFIED POSTPROCEDURAL STATES Status: Acute (5) History of CVA with residual deficit Code(s): I69.30 - UNSPECIFIED SEQUELAE OF CEREBRAL INFARCTION Status: Chronic Plan: Left sided infarct causing residual R sided deficits, stable at this time. Hemorrhagic in nature. (6) Seizure disorder as sequela of cerebrovascular accident Code(s): I69.398 - OTHER SEQUELAE OF CEREBRAL INFARCTION; G40.909 - EPILEPSY, UNSP, NOT INTRACTABLE, WITHOUT STATUS EPILEPTICUS Status: Chronic Plan: Continue with home meds. <Paddy Rodas - Last Filed: 09/19/17 07:17> Attending Addendum - Attending Addendum I personally evaluated the patient and discussed the management with Dr. Rodas I agree with the History, Examination, Assessment and Plan documented above with any addition or exceptions noted below- Patient opens eyes; withdraws left lower extremity to pain/tactile stimulation. Does not follow commands. Afebrile VSS. 1) Large R MCA infarct- minimal change/improvement; will consult palliative as family is leaning to comfort/supportive care. 2) HTN- continue to monitor, 3) Bradycardia- continue theophylline as needed. <Alejandra Izquierdo - Last Filed: 09/19/17 11:11>
--- NOTE | 2017-09-19 08:30 | CT ---
PRELIMINARY REPORT/[facility]/EMERGENCY AFTER HOURS PROCEDURE: Addendum created by Felice Kaye MD on 09/19/2017 4:37 AM Central Time ([place] & [place]) The findings were verbally communicated via telephone conference with Dr. 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 Initial Report created on 09/19/2017 4:22 AM Central Time ([place] & [place]) EXAM: CT Head Without Intravenous Contrast CLINICAL HISTORY: 72 years old, female; Condition or disease; Other: CVA; Patient HX: F/u CVA TECHNIQUE: Axial computed tomography images of the head/brain without intravenous contrast. COMPARISON: CT report 09/17/17. FINDINGS: Brain: Extra-axial CSF density anteriorly in the right middle cranial fossa suggestive of an arachnoi d cyst. Possible small arachnoid cyst in the left middle cranial fossa. Encephalomalacia in the left MCA distribution with extensive, presumably chronic white matter changes in the left hemisphere, previously reported. Loss of garcia-white differentiation within the right insula extending along the c sandhya radiata and throughout the right frontoparietal region. No hemorrhage. Ventricles: Normal. Bones/joints: Left frontotemporal craniotomy changes. Soft tissues: Normal. Sinuses: Unremarkable. Mastoid air cells: Unremarkable. No mastoid effusion. IMPRESSION: Acute infarct involving the right MCA distribution. Thank you for allowing us to participate in the care of your patient. Dictated and Authenticated by: Felice Kaye MD 09/19/2017 4:22 AM Central Time ([place] & [place]) FINAL REPORT EMERGENCY AFTER HOURS CT HEAD WITHOUT IV CONTRAST: Date: 09/19/17 HISTORY: Acute right CVA. COMPARISON: 09/17/17. IMPRESSION: 1. Acute right MCA distribution infarction. This was not visualized on the study of 09/17/17. This i nvolves the right frontal and parietal, as well as superior and posterior aspect of the right tempora l lobes. 2. Large area of encephalomalacia involving left cerebral hemisphere, similar to the prior study, [place] related to remote areas of infarction, as well as extensive chronic small vessel ischemic change s on the left. There is associated ex vacuo dilatation of left lateral ventricle. 3. Cerebral and cerebellar volume loss. 4. Left frontotemporal craniotomy defect. 5. Scalp soft tissue swelling in the right lateral parietal region. 6. Right middle cranial fossa arachnoid cyst. Findings are in agreement with the preliminary report by Bonnie. POS: [facility]
--- NOTE | 2017-09-19 08:54 | PRG ---
DATE OF SERVICE: 09/19/2017 SUBJECTIVE: This morning she is less responsive, no sedation. PHYSICAL EXAMINATION: VITAL SIGNS: Pulse 64, blood pressure 151/56, sat 100%, respirations 21. I's and O's 1260 in, 738 o ut. HEENT: Pupils are 2 mm and reactive. She is doing some decerebrate posturing. CHEST: Chest revealed decreased breath sounds without rhonchi. CARDIAC: Normal S1, S2. ABDOMEN: Soft, no masses. PO2 was 113, pCO2 37.46 on 10, 30%. Electrolytes are normal. CT brain shows a previously described right-sided MCA infarct and a previous left-sided craniotomy. IMPRESSION: 1. Respiratory failure secondary to new right-sided middle cerebral artery infarct. 2. Obesity. PLAN: She is a DNR. Will discuss with the family comfort care. Extubation, etc. In the meantime will start nutrition. One-half hour critical care time.
--- NOTE | 2017-09-19 09:28 | RAD ---
CHEST 1 VIEW PORTABLE: Date: 09/19/17 HISTORY: 72-year-old female with respiratory insufficiency. COMPARISON: 09/18/17. FINDINGS: NG tube and endotracheal tubes are in stable position. Monitor leads overlie the chest. Mild bilatera l vascular congestion. No confluent pneumonia, overt edema, or pleural effusions. IMPRESSION: Mild vascular congestion. Stable life support tubes. No new process. POS: [facility]
[2017-09-19] MEDS: Famotidine/PF 20 mg/2ml Vial SLOW IVP SCH ×2 (09:33→21:51)
[2017-09-19] MEDS: Aspirin 300 MG Suppository PR SCH (09:33)
[2017-09-19] MEDS: Sodium Chloride 0.9% 1,000 ML IV SCH (18:16)
[2017-09-19] MEDS: Enoxaparin Sodium 40 MG/0.4 ML SYRINGE SC SCH (21:50)
[2017-09-19] MEDS: Atorvastatin Calcium 40 MG TAB PO SCH (21:51)
[2017-09-20 04:50] LABS: Anion Gap 10 mmol/L (10-20); BUN (Urea Nitrogen) 9 mg/dL (9.8-20.1); Calc. Creatinine Clearance 109 mL/min (70-130); Calcium 7.9 mg/dL (7.8-10.44); Carbon Dioxide 22 mmol/L (23-31); Chloride 109 mmol/L (98-107); Estimated GFR-MDRD 82
[2017-09-20] MEDS: Fosphenytoin Sodium 100 MG in Sodium Chloride 0.9% 50 ML IVPB SCH ×2 (05:51→14:10)
[2017-09-20 07:09] LABS: Oxyhemoglobin 95.8 % (94.0-97.0); Sodium 140 mmol/L (135-148)
[2017-09-20 07:14] LABS: Mechanical Tidal Volume 500 ml; Mode PSIMV; Modified Allen's Test POSITIVE; Pressure Support 10 cmH2O; Vent YES
--- NOTE | 2017-09-20 07:32 | PDOC.FM ---
- Subjective Subjective: Patient stable overnight, no changes in status. HR in the 40s at times, BP has been labile in 130s-180s systolic. Family does not want to see patient suffer and is planning to have family meeting today to establish goals of care. Patient is currently about 60hrs s/p initial event on Tuesday night. Palliative care consulted yesterday, but unable to talk to as he had left the hospital for the day. - Objective MAR Reviewed: Yes Vital Signs & Weight: Vital Signs (12 hours) Temp Pulse Resp BP Pulse Ox 09/20/17 06:30 47 L 188/51 H 09/20/17 06:29 43 L 10 L 100 09/20/17 06:00 13 09/20/17 04:00 99.0 F 10 L 09/20/17 02:50 44 L 177/56 H 09/20/17 02:00 20 09/20/17 01:02 43 L 130/38 L 09/20/17 00:00 99.1 F 21 H 09/19/17 22:44 42 L 148/47 H 09/19/17 22:00 14 09/19/17 20:00 98.7 F 59 L 28 H 100 Weight Admit Weight 92.7 kg Weight 95.8 kg Most Recent Monitor Data Heart Rate from ECG 46 NIBP 188/51 NIBP BP-Mean 94 Respiration from ECG 11 SpO2 100 I&O: 09/19/17 09/20/17 09/21/17 06:59 06:59 06:59 Intake Total 1985 1307 Output Total 564 860 Balance 1421 447 Result Diagrams: 09/18/17 03:26 09/20/17 03:25 <Paddy Rodas - Last Filed: 09/20/17 07:24> - Objective Vital Signs & Weight: Vital Signs (12 hours) Temp Pulse Resp BP Pulse Ox 09/20/17 10:00 18 09/20/17 08:00 98.6 F 12 09/20/17 06:30 47 L 188/51 H 09/20/17 06:29 43 L 10 L 100 09/20/17 06:00 13 09/20/17 04:00 99.0 F 10 L 09/20/17 02:50 44 L 177/56 H 09/20/17 02:00 20 09/20/17 01:02 43 L 130/38 L 09/20/17 00:00 99.1 F 21 H 09/19/17 22:44 42 L 148/47 H Weight Admit Weight 92.7 kg Weight 95.8 kg Most Recent Monitor Data Heart Rate from ECG 48 NIBP 175/45 NIBP BP-Mean 85 Respiration from ECG 10 SpO2 100 I&O: 09/19/17 09/20/17 09/21/17 06:59 06:59 06:59 Intake Total 1985 1307 Output Total 564 910 120 Balance 1421 397 -120 Result Diagrams: 09/18/17 03:26 09/20/17 03:25 <Alejandra Izquierdo - Last Filed: 09/20/17 10:54> Phys Exam - Physical Examination intubated, nonresponsive pupils reactive, does not track light non-labored, Cardiovascular: no significant murmur bradycardic Gastrointestinal: soft, positive bowel sounds Musculoskeletal: pulses present Rt LE pitting edema 4+ GCS 6, does not follow command or open eyes; does retract from pain Deviation from normal: unconscious Skin: no rash <Paddy Rodas - Last Filed: 09/20/17 07:24> Dx/Plan (1) Acute right MCA stroke Code(s): I63.511 - CEREB INFRC D/T UNSP OCCLS OR STENOS OF RIGHT MID CEREB ART Status: Acute Plan: Stable from yesterday, minimal change. Will continue to monitor with and watch for neurologic progress in coordination with Neurology, Pulmonology, Palliative care. Continue to monitor BP for adequate perfusion. Plan on having family meeting this morning. (2) Bradycardia Code(s): R00.1 - BRADYCARDIA, UNSPECIFIED Status: Acute Plan: Has been low since admission. Theophylline at this time for <45 (3) Acute respiratory failure Code(s): J96.00 - ACUTE RESPIRATORY FAILURE, UNSP W HYPOXIA OR HYPERCAPNIA Status: Acute Plan: No changes overnight. Continue to monitor and coordinate with Pulmonology. (4) Hx of craniotomy Code(s): Z98.890 - OTHER SPECIFIED POSTPROCEDURAL STATES Status: Acute (5) History of CVA with residual deficit Code(s): I69.30 - UNSPECIFIED SEQUELAE OF CEREBRAL INFARCTION Status: Chronic Plan: Left sided infarct causing residual R sided deficits, stable at this time. 2002. Hemorrhagic in nature. (6) Seizure disorder as sequela of cerebrovascular accident Code(s): I69.398 - OTHER SEQUELAE OF CEREBRAL INFARCTION; G40.909 - EPILEPSY, UNSP, NOT INTRACTABLE, WITHOUT STATUS EPILEPTICUS Status: Chronic Plan: Continue with home meds. <Paddy Rodas - Last Filed: 09/20/17 07:24> Attending Addendum - Attending Addendum I personally evaluated the patient and discussed the management with Dr. Rodas I agree with the History, Examination, Assessment and Plan documented above with any addition or exceptions noted below- Patient intubated; no changes overnight. Afebrile VSS A/P: 1) R MCA CVA- no significant neurologic improvement ; withdraws to pain; does not follow commands; plan for family conference today to decide on goals of care, 2) Bradycardia- stable, 3) Respiratory failure- continue supportive care for now pending family conference. <Alejandra Izquierdo - Last Filed: 09/20/17 10:54>
--- NOTE | 2017-09-20 08:16 | PRG ---
DATE OF SERVICE: 09/20/2017 Gypsy Bourgeois remains unresponsive on the vent. She is a DNR. PHYSICAL EXAMINATION: VITAL SIGNS: Blood pressure 180/51, pulse 47, respirations 15. I's and O's have been 137 in 860 out . CHEST: Chest reveals right-sided infiltrate, some cephalization. She is unresponsive. Chest reveal s decreased breath sounds without any wheezing. CARDIAC: Normal S1, S2. ABDOMEN: Soft, no masses. PO2 is 96, pCO2 37.41, rate of 10, 30%, electrolytes are normal. Cultures are negative. IMPRESSION: 1. New right middle cerebral artery large infarct. 2. Encephalopathy. 3. Possibly pneumonia. 4. Bradycardia. PLAN: Will discuss with family, ongoing issues. I am told they are eager to do comfort measures. W e will consider extubation and comfort measures. I will follow.
--- NOTE | 2017-09-20 09:02 | RAD ---
AP CHEST: History: Ventilator dependent patient. 72-year-old female. Date: 09-20-17 Comparison: 09-19-17 FINDINGS: AP chest demonstrates a nasogastric tube in place, distal tip not visualized. Patient is intubated. E ndotracheal tube is in good position. Mild to moderate cardiomegaly is seen. Mild pulmonary vascular congestion is seen. EKG leads seen over the chest. Radiographic appearance of the chest is stable. No significant interval change is seen. Surgical clips seen in the right neck. IMPRESSION: Nasogastric and endotracheal tubes appear to be in good position. Distal most aspect of the nasogastr ic tube is not definitely visualized. It may be worthwhile to consider coned down view of the lower c hest and upper abdomen to definitely determine the location of the NG tube. POS: [facility]
[2017-09-20] MEDS: Famotidine/PF 20 mg/2ml Vial SLOW IVP SCH (09:59)
[2017-09-20] MEDS: Aspirin 300 MG Suppository PR SCH (10:00)
[2017-09-20] MEDS ORDERED: Morphine PF 1 MG/ML SYR IVP PRN (11:10)
[2017-09-20] MEDS ORDERED: Morphine 10 MG/ML VIAL SLOW IVP PRN (11:10)
[2017-09-20] MEDS: Sodium Chloride 0.9% 1,000 ML IV SCH (15:37)
[2017-09-20] MEDS ORDERED: Lorazepam 2 MG/ML VIAL SLOW IVP PRN (16:34)
[2017-09-20] MEDS: Morphine 4 MG/ML VIAL SLOW IVP PRN (22:43)
[2017-09-21] MEDS: Morphine 4 MG/ML VIAL SLOW IVP PRN ×2 (02:57→05:38)
--- NOTE | 2017-09-21 08:22 | PDOC.FM ---
Addendum entered and electronically signed by Paddy Rodas DO 09/21/17 08:38 : Will have inpatient hospice evaluate today to determine if patient is candidate for inpt hospice. Original Note: - Subjective Subjective: Yesterday family decided to terminally extubate after extensive conversation with palliative care. Do not want her to suffer while considering quality of life. Morphine used for respiratory distress. Transferred to floor. Further discussion with palliative care nurse - Objective MAR Reviewed: Yes Vital Signs & Weight: Vital Signs (12 hours) Temp Pulse Resp BP Pulse Ox 09/21/17 08:01 98.6 F 43 L 22 H 160/55 H 93 L Weight Admit Weight 92.7 kg Weight 92.261 kg Most Recent Monitor Data Heart Rate from ECG 52 NIBP 167/39 NIBP BP-Mean 98 Respiration from ECG 20 SpO2 96 I&O: 09/20/17 09/21/17 09/22/17 06:59 06:59 06:59 Intake Total 1307 942 Output Total 910 1350 Balance 397 -408 Result Diagrams: 09/18/17 03:26 09/20/17 03:25 <Paddy Rodas - Last Filed: 09/21/17 08:33> - Objective Vital Signs & Weight: Vital Signs (12 hours) Temp Pulse Resp BP Pulse Ox 09/21/17 08:01 98.6 F 43 L 22 H 160/55 H 93 L Weight Admit Weight 92.7 kg Weight 92.261 kg Most Recent Monitor Data Heart Rate from ECG 52 NIBP 167/39 NIBP BP-Mean 98 Respiration from ECG 20 SpO2 96 I&O: 09/20/17 09/21/17 09/22/17 06:59 06:59 06:59 Intake Total 1307 942 Output Total 910 1350 Balance 397 -408 Result Diagrams: 09/18/17 03:26 09/20/17 03:25 <Alejandra Izquierdo - Last Filed: 09/21/17 10:53> Phys Exam - Physical Examination tongue dry, breathing through mouth breathing through secretions Cardiovascular: RRR, no significant murmur Gastrointestinal: soft, no distention 4+ edema in Rt LE unconscious Deviation from normal: obtunded <Paddy Rodas - Last Filed: 09/21/17 08:33> Dx/Plan (1) Acute right MCA stroke Code(s): I63.511 - CEREB INFRC D/T UNSP OCCLS OR STENOS OF RIGHT MID CEREB ART Status: Acute Plan: Terminally extubated, comfort care (2) Bradycardia Code(s): R00.1 - BRADYCARDIA, UNSPECIFIED Status: Acute Plan: Has been low since admission. meds held per family (3) Acute respiratory failure Code(s): J96.00 - ACUTE RESPIRATORY FAILURE, UNSP W HYPOXIA OR HYPERCAPNIA Status: Acute Plan: (4) Hx of craniotomy Code(s): Z98.890 - OTHER SPECIFIED POSTPROCEDURAL STATES Status: Acute (5) History of CVA with residual deficit Code(s): I69.30 - UNSPECIFIED SEQUELAE OF CEREBRAL INFARCTION Status: Chronic Plan: Left sided infarct causing residual R sided deficits, stable at this time. 2002. Hemorrhagic in nature. (6) Seizure disorder as sequela of cerebrovascular accident Code(s): I69.398 - OTHER SEQUELAE OF CEREBRAL INFARCTION; G40.909 - EPILEPSY, UNSP, NOT INTRACTABLE, WITHOUT STATUS EPILEPTICUS Status: Chronic Plan: Meds held <Paddy Rodas - Last Filed: 09/21/17 08:33> Attending Addendum - Attending Addendum I personally evaluated the patient and discussed the management with Dr. Rodas. I agree with the History, Examination, Assessment and Plan documented above with any addition or exceptions noted below- Patient unresponsive. No family at bedside. Afebrile VSS A/P: 1) Acute respiratory failure secondary to R MCA CVA- terminally extubated yesterday per family request due to poor prognosis and no improvement in neurologic status. 2) R MCA CVA- no improvement in neurologic status. Continue comfort care. Plan for probable transfer to inpatient hospice. <Alejandra Izquierdo - Last Filed: 09/21/17 10:53>
[2017-09-21] MEDS ORDERED: Scopolamine 1.5 mg/72 hour Patch TD SCH (10:30)
[2017-09-21 12:47] VITALS: BMI 32.8
--- NOTE | 2017-09-21 13:01 | PRG ---
DATE OF SERVICE: 09/21/2017 SUBJECTIVE: Gypsy Bourgeois remains unresponsive. To my surprise, she hasstill bp 160\55. OBJECTIVE: VITAL SIGNS: Sats are in the 80s, temperature 98, blood pressure 160/55. CHEST: Decreased breath sounds. CARDIAC: Normal S1, S2. IMPRESSION: 1. Cerebrovascular accident. 2. Respiratory failure. PLAN: Comfort care. [email or web address]
[2017-09-21 20:26] VITALS: BP 192/67; TEMP 99.3
--- NOTE | 2017-09-22 06:01 | DIS-2 ---
DATE OF ADMISSION: 09/17/2017 DATE OF DISCHARGE: 09/21/2017 RESIDENT: Paddy Rodas D.O. ADMITTING ATTENDING: Afshin Mejia MD DISCHARGE ATTENDING: Alejandra Izquierdo M.D. CONSULTANTS: Jaskaran Pastrana M.D. of Neurosurgery, Flo Frost M.D. of Pulmonology, Elva Casillas of Neurology. PROCEDURES: 1. A brain CT on 09/07/2017 showing postoperative changes and extensive encephalomalacia change of t he left cerebral hemisphere with no definite acute findings. 2. Chest x-ray on 09/17/2017, showing endotracheal tube tip 2.5 cm from the michaela and mild cardiome rubina. 3. Abdominal x-ray on 09/17/2017 showing enteric tube tip at the gastric body; side port appears to be at the GE junction. 4. Echocardiogram on 09/17/2017 showing estimated ejection fraction of 50-55% with no aortic stenosi s or insufficiency. 5. CTA of the head and neck. 6. CT angio of the head on 09/17/2017 and that showed left MCA encephalomalacia. 7. Brain MRI on 09/18/2017 showing large infarct involving the right MCA distribution, encephalomala coni change in the left MCA, area with blood products seen in the right perisylvian location, recommen dations for a followup CT. 8. Brain CT on 09/19/2017 showing loss of garcia-white differentiation within the right insula extendi ng along the melgar radiata and throughout the right frontoparietal region with no signs of hemorrhag e. 9. Intubation on 09/17/2017 and extubation on 09/20/2017. PRIMARY DIAGNOSES: 1. Right middle cerebral artery cerebrovascular accident with neurologic changes consistent with thr ombotic infarction. 2. Previous left MCA infarction causing right-sided deficits. SECONDARY DIAGNOSES: 1. Bradycardia. 2. Indeterminate troponins. 3. Seizure disorder which was residual from the previous stroke in 2002. 4. History of craniotomy for hemorrhage. DISCHARGE MEDICATIONS: 1. Scopolamine transdermal patch every 3 days. 2. Ativan 2 mg q. 2 hours p.r.n. agitation. 3. Morphine 4 mg q. 2 hours p.r.n. air hunger. DISCONTINUED MEDICATIONS: Baby aspirin, atorvastatin 40 mg p.o. at bedtime. HISTORY OF PRESENT ILLNESS AND HOSPITAL COURSE: The patient is a 72-year-old female with past medica l history of left CVA which began as ischemic and turned hemorrhagic requiring left-sided craniotomy in 2002. From this event, the patient had residual right-sided weakness of the right arm and right l eg; however, the patient was able to continue living a fairly normal life and was described as being able to ride on a 4-smith in the weeks preceding current hospitalization. Additionally, the patien t had a seizure disorder from this event on the day prior to admission. The patient was in a normal state of health when she was found to be unresponsive, so she was taken to the ER and found to be aga in nonresponsive. Therefore, the patient was intubated because she was having difficulty maintaining the airway. Imaging revealed the patient had experienced a significant right-sided cerebrovascular accident in the middle cerebral artery distribution. Recommendations by Neurology, Pulmonology, and Neurosurgery, all agreed to watch the patient for approximately 3 days to determine if the patient wa s able to recover from the current episode; however, the patient's neurologic status did not change a nd the patient was primarily nonresponsive. She would partially open her eyes sometimes when aroused ; however, she was unable to follow commands or withdraw from pain at times. Pupils were unable to r espond to motion or light. Discussions with the and other family determined that the patient would not want to live in a vegetative state and desired for the patient to be removed from further care efforts. Therefore, the patient was placed as a DNR and terminally extubated. The patient was able to maintain respirations during this time and comfort measures were provided after discussions w [facility] palliative care. The patient was transferred to the floor and discussions with family and pallia tive care determined that they would request if the patient were to be transferred out that she would go to inpatient hospice. This was done on day #4 of hospitalization and she was accepted to [facility] where she was transferred on the evening of 09/21/2017. Scopolamine was used to reduce se cretions during this time. DISPOSITION: Terminal. DISCHARGE INSTRUCTIONS: 1. Location: Inpatient hospice. 2. Diet: None. 3. Activity: Bed rest. 4. Followup: Follow up with inpatient hospice.
--- NOTE | 2017-09-26 13:47 | CT ---
CT ANGIO OF HEAD WITH AND WITHOUT CONTRAST WITH PERFUSION 09/17/17 HISTORY: Altered mental status. COMPARISON: CT brain same day. TECHNIQUE: CT angiogram of the head performed after the intravenous administration of contrast. 3D rendering is provided. Perfusion was performed. FINDINGS: On the CTA images, there is a clot completely occluding the distal right M1 branch with extension to the superior and inferior M2 branches for a short segmental length with distal reconstitution. This a bnormal increased mean transit time throughout the right MCA territory with mildly decreased cerebral blood flow although the cerebral blood volume is maintained indicating a large volume of potentially viable brain. Dense atherosclerotic plaque throughout the transverse aorta. Evidence of prior surgery on the right neck. Left MCA encephalomalacia is present. The orbits are unremarkable. Patient is intubated and enteric tube has also been placed. There is some atelectatic changes in the lung apices. Small volume gas in the right internal jugular vein. Anterior cerebral arteries are patent. High grade stenosis left P1. Right SHRUB GROWER is patent. Left m iddle cerebral artery is patent. IMPRESSION: Acute thrombus of the distal right M1 branch with a large penumbra of viable salvageable brain. Code CR - Nurse notified of findings via telephone at 6:[address] Disla was notified via the nurse.
== END 2017-09-21 20:05 | disposition hospice, inpatient (51) | DRG 64 ==
LOC: ERS 15:13 → EDBD 15:13 → CCU 16:45 → T4-B 09-20 18:55
PROVIDERS: ADMIT Student in an Organized Health Care Education/Training Program; ATTEND Student in an Organized Health Care Education/Training Program
PROC: 5A1945Z Respiratory Ventilation, 24-96 Consecutive Hours (ICD-10-PCS; principal; 2017-09-17)
PROC: 0BH17EZ Insertion of Endotracheal Airway into Trachea, Via Natural or Artificial Opening (ICD-10-PCS; 2017-09-17)
DX: I63.311 Cerebral infarction due to thrombosis of right middle cerebral artery (principal); G93.49 Other encephalopathy; J96.00 Acute respiratory failure, unspecified whether with hypoxia or hypercapnia; J44.9 Chronic obstructive pulmonary disease, unspecified; I24.8 Other forms of acute ischemic heart disease; I69.351 Hemiplegia and hemiparesis following cerebral infarction affecting right dominant side; I16.1 Hypertensive emergency; Z66 Do not resuscitate; Z51.5 Encounter for palliative care; I89.0 Lymphedema, not elsewhere classified; I10 Essential (primary) hypertension; Z87.891 Personal history of nicotine dependence; E66.9 Obesity, unspecified; I69.398 Other sequelae of cerebral infarction; G93.89 Other specified disorders of brain; G93.0 Cerebral cysts; R00.1 Bradycardia, unspecified; G40.909 Epilepsy, unspecified, not intractable, without status epilepticus; Z98.890 Other specified postprocedural states
CPT/HCPCS: 0042T; 31500; 36415; 36416; 51702; 70450; 70496; 70498; 70551; 71010; 74000; 80048; 80053; 80061; 80185; 80306; 80307; 81003; 81015; 82550; 82553; 82805; 83036; 83605; 83690; 83930; 84146; 84443; 84484; 85025; 85610; 85730; 87040; 87086; 93005; 93306; 94002; 94003; 96365; 96366; 96368; 96375; A4216; G8978-GP-CN; G8979-GP-CL; G8987-GO-CN; G8988-GO-CL; J0280; J0461; J1650; J1956; J2270; J2543; J2704; J7050; J7620; Q2009; S0028